=== PATIENT | male | born 1980 | race Caucasian/White ===

== ENCOUNTER 2017-02-07 21:51 | Emergency (ER) | payer OTHER ==
[2017-02-07 22:12] LABS: URINE BILIRUBIN NEGATIVE (NEGATIVE); URINE BLOOD 3+ (NEGATIVE); URINE GLUCOSE (UA) NORMAL (NORMAL); URINE KETONE NEGATIVE (NEGATIVE); URINE LEUKOCYTE ESTERASE TRACE (NEGATIVE); URINE NITRATE NEGATIVE (NEGATIVE); URINE PROTEIN 1+ (NEGATIVE); UROBILINOGEN NORMAL mg/dL (<1.0)
[2017-02-07 22:24] LABS: URINE BACTERIA 1+ (NONE SEEN); URINE RBC TNTC /[HPF] (0-2); URINE WBC 0-5 /[HPF] (0-3); URINE YEAST FEW (NONE SEEN)
== END 2017-02-08 03:45 | disposition home or self-care (01) ==
LOC: ER 21:51
PROVIDERS: Emergency Medicine
DX: N20.1 Calculus of ureter (principal); R31.9 Hematuria, unspecified; R10.30 Lower abdominal pain, unspecified; Z87.442 Personal history of urinary calculi; K50.90 Crohn's disease, unspecified, without complications; Z79.899 Other long term (current) drug therapy; Z88.0 Allergy status to penicillin; Z88.1 Allergy status to other antibiotic agents
CPT/HCPCS: 74150; 81001; 87086; 96372; 99283-25

== ENCOUNTER 2017-04-12 21:38 | Emergency (ER) | payer OTHER | END 2017-04-12 22:10 | disposition home or self-care (01) | LOC: ER 21:38 | DX: S61.210A Laceration without foreign body of right index finger without damage to nail, initial encounter (principal); W26.8XXA Contact with other sharp object(s), not elsewhere classified, initial encounter; Y92.009 Unspecified place in unspecified non-institutional (private) residence as the place of occurrence of the external cause; Z79.899 Other long term (current) drug therapy; Z88.0 Allergy status to penicillin | CPT/HCPCS: 99070; 99282 ==